=== PATIENT | female | born 1960 | race Caucasian/White ===

== ENCOUNTER 2017-08-02 22:45 | Emergency (ER) | payer MEDICAID, OTHER ==
[2017-08-02 22:59] VITALS: TEMP 98.4
--- NOTE | 2017-08-02 23:29 | EDPHY ---
H & P Stated Complaint: 89 Source: Patient, Family () Exam Limitations: No limitations - Personal History Current Tetanus/Diphtheria Vaccine: Unsure Current Tetanus Diphtheria and Acellular Pertussis (TDAP): Unsure - Medical/Surgical History Hx Asthma: Yes Hx Chronic Respiratory Disease: No Hx Diabetes: No Hx Cardiac Disease: No Hx Renal Disease: No Hx Cirrhosis: No Hx Alcoholism: No Hx HIV/AIDS: No Hx Splenectomy or Spleen Trauma: No Other PMH: appy. adhesion surgery. - Social History Smoking Status: Never smoked Time Seen by Provider: 08/02/17 23:18 HPI/ROS: HPI: This is a 57-year-old female who presents with Chief Complaint: Trouble breathing Location: Chest Quality: Dyspnea Duration: 2-3 days Signs and Symptoms: + shortness of breath at rest, + shortness of breath on exertion, + cough, no chest pain, no palpitations, no lower extremity edema, no wheezing, no orthopnea, no paroxysmal nocturnal dyspnea, no fever, no injury/ trauma, no hemoptysis Timing: Worsening Severity: Moderate Context: Patient has a history of asthma presents with worsening 3 day history nonproductive cough, shortness of breath that worsened with exertion but now at rest, wheezing, fatigue. She has been using her ProAir inhaler every 4 hr without relief. Last inhaler usage was 1 hr prior to arrival. Nonsmoker. Denies fever/runny nose/abdominal pain/nausea/vomiting/chest pain/lower extremity edema. No recent long distance travel. Patient has never been intubated for respiratory distress. Patient has no prior history of hospitalizations secondary to asthma exacerbation. Last asthma exacerbation was over 2 years ago. She has an albuterol nebulizer machine at home with medication for it but her albuterol inhaler she does not have a prescription for and feels like it is getting low. Modifying Factors: See above Comment: ROS: see HPI Constitutional: No fever, no chills, no weight loss Eyes: No blurred vision Respiratory: + shortness of breath, + cough Cardiovascular: No chest pain, no palpitations, no lower extremity edema Gastrointestinal: No nausea, no vomiting, no diarrhea Genitourinary: No dysuria Extremities: No myalgias Neurologic: No weakness, no numbness Skin: No rashes Hematologic: No bruising, no bleeding MEDICAL/SURGICAL/SOCIAL HISTORY: Medical/Surgical history: appy adhesion surgery Social history: CONSTITUTIONAL: Obese female, anxious, nontoxic in appearance, awake and alert, no obvious distress HEENT: Atraumatic and normocephalic, PERRL, EOMI. Tympanic membranes clear. Oropharynx clear, no exudate and moist pink mucosa. Airway patent. No lymphadenopathy. No meningismus. Cardiovascular: Normal S1/S2, regular rate, regular rhythm, without murmur rub or gallop. PULMONARY/CHEST: Symmetrical and nontender. Faint expiratory wheezing bilaterally. Tachypnea. Average air movement. No accessory muscle usage. ABDOMEN: Soft, nondistended, nontender, no rebound, no guarding, no peritoneal signs, no masses or organomegaly. No CVAT. EXTREMITIES: 2/2 pulses, strength 5/5, no deformities, no clubbing, no cyanosis or edema. NEUROLOGICAL: no focal neuro deficits. GCS 15. SKIN: Warm and dry, no erythema. no rash. Good capillary refill. (Tamica Garcia) Constitutional: Initial Vital Signs Temperature (C) 37 C 08/02/17 22:47 Heart Rate 84 08/02/17 22:47 Respiratory Rate 16 08/02/17 22:47 Blood Pressure 168/87 H 08/02/17 22:47 O2 Sat (%) 94 08/02/17 22:47 O2 Delivery Mode Room Air Allergies/Adverse Reactions: No Known Allergies Allergy (Verified 10/15/12 21:07) Home Medications: Medication Instructions Recorded Albuterol [Proventil Inhaler (RX)] 1 - 2 puffs IH DAILY PRN 10/01/12 Herbals/Supplements -Info Only 1 ea PO DAILY 04/26/15 LORazepam [Ativan (*)] 1 mg PO BID PRN #10 tab 04/26/15 Magnesium Oxide [Magnesium Oxide 1,000 mg PO HS 04/26/15 500 mg] Albuterol [Proventil] 2 puffs IH Q4 PRN #1 aerosol 08/03/17 Benzonatate [Tessalon Pearles (RX)] 100 mg PO Q6 PRN #12 cap 08/03/17 predniSONE 50 mg PO DAILY #5 tablet 08/03/17 Medical Decision Making - Diagnostics Imaging Results: Imaging Impressions Chest X-Ray 08/02/17 23:33 Impression: No pneumonia or acute process. Mild airways disease unchanged. ED Course/Re-evaluation: Chest x-ray, nebulizer therapy, oral medication ordered O2 sats 94% upon arrival. Afebrile and no systemic signs. Patient given DuoNeb x2, prednisone 60 mg, Tessalon Perles, [place] with adequate relief Chest x-ray my read shows no opacity, no effusion, no pneumothorax, no widened mediastinum 0022: reassessed patient: O2 sats 96%. Resting calmly. Improved aeration. Patient feels well enough to go home. This patient was seen under the supervision of my secondary supervising physician. I evaluated care for this patient independently. (Tamica Garcia) PHYSICIAN DOCUMENTATION: The patient was evaluated and managed by the Physician Security Consultant. My co- signature indicates that I have reviewed this chart and I agree with the findings and plan of care as documented. I am the secondary supervising physician. (Talia Doan) Differential Diagnosis: Shortness of breath including but not limited to pulmonary infectious process, COPD, asthma, pulmonary embolus and congestive heart failure. (Tamica Garcia) - Data Points Medications Given: Discontinued Medications Hydrocodone Bitart/Acetaminophen ([place] 5/325) 1 tab PO EDNOW ONE Stop: 08/02/17 23:34 Last Admin: 08/02/17 23:42 Dose: 1 tab Albuterol/Ipratropium (Duoneb) 3 ml IH EDNOW ONE Stop: 08/02/17 23:34 Last Admin: 08/02/17 23:42 Dose: 3 ml Albuterol/Ipratropium (Duoneb) 3 ml IH EDNOW ONE Stop: 08/03/17 00:29 Last Admin: 08/03/17 00:34 Dose: 3 ml Benzonatate (Tessalon Pearles) 200 mg PO EDNOW ONE Stop: 08/02/17 23:34 Last Admin: 08/02/17 23:42 Dose: 200 mg Prednisone (Prednisone) 60 mg PO EDNOW ONE Stop: 08/02/17 23:34 Last Admin: 08/02/17 23:42 Dose: 60 mg Departure - Departure Disposition: Home, Routine, Self-Care Clinical Impression: Asthma with acute exacerbation Qualifiers: Asthma severity: mild Asthma persistence: persistent Qualified Code(s): J45.31 - Mild persistent asthma with (acute) exacerbation Condition: Good Instructions: Sleep Apnea (DC), COPD (Chronic Obstructive Pulmonary Disease) ( ED) Referrals: PCP Not In,Dictionary [Medical Doctor] - 2-3 days, if not improved [facility],. [Clinic] - As per Instructions Stand Alone Forms: Work Excuse Prescriptions: Albuterol [Proventil] 2 puffs IH Q4 PRN #1 aerosol PRN Reason: Short Of Breath/Dyspnea Benzonatate [Tessalon Pearles (RX)] 100 mg PO Q6 PRN #12 cap PRN Reason: Cough, Moderate predniSONE 50 mg PO DAILY #5 tablet
[2017-08-02] MEDS ORDERED: HYDROCODONE/APAP 5/325 TAB PO ONE (23:33)
[2017-08-02] MEDS ORDERED: BENZONATATE 100 MG CAP PO ONE (23:33)
[2017-08-02] MEDS ORDERED: IPRATROPIUM/ALBUTEROL 3 ML DEYVIAL IH ONE (23:33)
[2017-08-02] MEDS ORDERED: predniSONE 20 MG TAB PO ONE (23:33)
[2017-08-02 23:46] VITALS: RESP 20; O2SAT 95
[2017-08-03] MEDS ORDERED: IPRATROPIUM/ALBUTEROL 3 ML DEYVIAL IH ONE (00:28)
[2017-08-03 00:37] VITALS: BP 141/75; PULSE 82
== END 2017-08-03 01:04 | disposition home or self-care (01) ==
DX: J45.31 Mild persistent asthma with (acute) exacerbation (principal)
CPT/HCPCS: J7512

== ENCOUNTER 2017-11-09 13:54 | Emergency (ER) | payer OTHER ==
--- NOTE | 2017-11-09 13:59 | EDPHY ---
H & P Stated Complaint: stung on lip by bee/took benadryl Time Seen by Provider: 11/09/17 13:58 HPI/ROS: CHIEF COMPLAINT: Bee sting to face HISTORY OF PRESENT ILLNESS: The patient presents the ED with a bee sting to her face. She took 25 mg of Benadryl approximately 2 hr prior to arrival. She continues to have swelling of her upper lip and right cheek. She denies any significant dyspnea. She has a history of having bee stings in the past without a significant reaction. The patient denies any additional acute medical complaints. REVIEW OF SYSTEMS: A comprehensive 10 point review of systems is otherwise negative aside from elements mentioned in the history of present illness. Source: Patient Exam Limitations: No limitations - Personal History Current Tetanus/Diphtheria Vaccine: No - Medical/Surgical History Hx Asthma: Yes Hx Chronic Respiratory Disease: No Hx Diabetes: No Hx Cardiac Disease: No Hx Renal Disease: No Hx Cirrhosis: No Hx Alcoholism: No Hx HIV/AIDS: No Hx Splenectomy or Spleen Trauma: No Other PMH: appy. adhesion surgery. - Social History Smoking Status: Never smoked - Physical Exam Exam: General Appearance: Alert, no distress Eyes: Pupils equal and round no pallor or injection ENT, Mouth: Swelling noted to the upper lip and face Respiratory: There are no retractions, lungs are clear to auscultation Cardiovascular: Regular rate and rhythm Gastrointestinal: Abdomen is soft and nontender, no masses, bowel sounds normal Neurological: 5/5 strength all 4 extremities Skin: Warm and dry, no rashes Musculoskeletal: Neck is supple nontender Extremities: symmetrical, full range of motion Constitutional: Initial Vital Signs Temperature (C) 36.7 C 11/09/17 13:56 Heart Rate 82 11/09/17 13:56 Respiratory Rate 18 11/09/17 13:56 Blood Pressure 158/70 H 11/09/17 13:56 O2 Sat (%) 95 11/09/17 13:56 O2 Delivery Mode Room Air Allergies/Adverse Reactions: No Known Allergies Allergy (Verified 11/09/17 13:55) Home Medications: Medication Instructions Recorded EPINEPHrine [Epipen 0.3 MG] 0.3 mg IM ONCE PRN #2 syr 11/09/17 predniSONE [prednisone 20mg (RX)] 3 tab PO DAILY #15 tab 11/09/17 Medical Decision Making ED Course/Re-evaluation: The patient presents the ED with swelling of the upper lip and face after a bee sting. She has no wheezing or intraoral swelling. Given her upper lip swelling she was treated with epinephrine, Benadryl and prednisone. The patient will be discharged home with a prescription for an epinephrine pen. She is advised to the take Benadryl and prednisone. The patient was re-evaluated by myself at 2:30 p.m.. She is in no acute distress. - Data Points Medications Given: Discontinued Medications Diphenhydramine HCl (Benadryl) 25 mg PO EDNOW ONE Stop: 11/09/17 14:07 Last Admin: 11/09/17 14:23 Dose: 25 mg Epinephrine HCl (Epinephrine) 0.3 mg IM EDNOW ONE Stop: 11/09/17 14:05 Last Admin: 11/09/17 14:23 Dose: 0.3 mg Prednisone (Prednisone) 60 mg PO EDNOW ONE Stop: 11/09/17 14:05 Last Admin: 11/09/17 14:23 Dose: 60 mg Departure - Departure Disposition: Home, Routine, Self-Care Clinical Impression: Bee sting allergy Condition: Good Instructions: Insect Bite or Sting (ED) Additional Instructions: 1. 50 mg of Benadryl every 6 hr as needed for swelling. 2. Take prednisone daily x5 days. 3. You have been given a prescription for an epinephrine pen in the event of a severe recurrent reaction. Prescriptions: EPINEPHrine [Epipen 0.3 MG] 0.3 mg IM ONCE PRN #2 syr PRN Reason: for severe reaction predniSONE [prednisone 20mg (RX)] 3 tab PO DAILY #15 tab
[2017-11-09] MEDS ORDERED: EPINEPHrine 1 MG/ML INJ IM ONE (14:04)
[2017-11-09] MEDS ORDERED: predniSONE 20 MG TAB PO ONE (14:04)
[2017-11-09] MEDS ORDERED: diphenhydrAMINE 25 MG CAP PO ONE (14:06)
[2017-11-09 15:03] VITALS: BP 111/56
== END 2017-11-09 14:58 | disposition home or self-care (01) ==
DX: T63.441A Toxic effect of venom of bees, accidental (unintentional), initial encounter (principal); J45.909 Unspecified asthma, uncomplicated
CPT/HCPCS: J0171; J7512